=== PATIENT | male | born 1950 | race Two or more races ===

== ENCOUNTER 2019-07-23 08:15 | Inpatient (IN) | payer MEDICARE, BC ==
[~2019-07-23] VITALS: Ht 180.3 cm; Wt 101.3 kg
[2019-07-23] MEDS ORDERED: SODIUM CHLORIDE 0.9% 1,000 ML IV ONE (08:36)
[2019-07-23] MEDS ORDERED: ASPirin 81 mg TAB PO ONE (08:45)
[2019-07-23 08:53] LABS: Basophils # (auto) 0 10 ^3/uL (0-0.2); Basophils % (auto) 0.7 % (0.0-2.0); Eosinophils # (auto) 0.1 10 ^3/uL (0-0.8); Eosinophils % (auto) 1.3 % (0.0-7.0); Hematocrit 48.9 % (41.0-53.0); Hemoglobin 16.5 g/dL (13.5-17.5); Lymphocytes # (auto) 1.4 10 ^3/uL (0.4-5.4); Lymphocytes % (auto) 24.4 % (10.0-50.0); Mean Corpuscular Hemoglobin 30.4 pg (28.0-32.0); Mean Corpuscular Hgb Conc. 33.8 g/dL (32.0-36.0); Monocytes # (auto) 0.4 10 ^3/uL (0-1.3); Monocytes % (auto) 7.7 % (0.0-12.0); Neutrophils # (auto) 3.9 10 ^3/uL (1.6-8.6); Neutrophils % (auto) 65.9 % (37.0-80.0); Nucleated Red Blood Cells % 0.3 %; Platelet Count (auto) 192 10^3/uL (140-450); Red Blood Cells 5.43 10^6/uL (4.5-5.90); Red Cell Distribution Width 13.4 % (11.8-14.3); White Blood Cell 5.9 10^3/uL (4.4-10.8)
[2019-07-23 09:13] LABS: Chloride 109 mmol/L (98-107); Potassium 3.6 mmol/L (3.5-5.1); Sodium 139 mmol/L (136-145)
[2019-07-23 09:23] LABS: Alanine Aminotransferase 27 U/L (16-61); Albumin 4.4 g/dL (3.4-5.0); Alkaline Phosphatase 105 U/L (45-117); Anion Gap 4 (5-15); Aspartate Aminotransferase 20 U/L (15-37); BUN/Creatinine Ratio 22.8; Bilirubin, Total 1.3 mg/dL (0.2-1.0); Blood Urea Nitrogen 18 mg/dL (7-18); Calcium 8.6 mg/dL (8.5-10.1); Carbon Dioxide 26 mmol/L (21-32); GFR African American 125 mL/min; GFR Non-African American 103 mL/min; Glucose 103 mg/dL (74-106); Total Protein 8.4 g/dL (6.4-8.2)
[2019-07-23 09:40] LABS: Urine Bacteria NONE SEEN /hpf (None Seen); Urine Blood Negative /uL (Negative); Urine Mucus FEW (None Seen); Urine Specific Gravity 1.028 (1.001-1.035); Urine WBC 1 /hpf (0 - 3)
[2019-07-23] MEDS ORDERED: LISI10TA6 PO (10:08)
[2019-07-23] MEDS ORDERED: cloNIDine HCL 0.1 MG TAB PO ONE (10:30)
[2019-07-23] MEDS ORDERED: hydrALAZINE HCL 20 MG/ML VL IV PRN (11:00)
[2019-07-23] MEDS: amLODIPine BESYLATE 5 MG TAB PO SCH (11:00)
[2019-07-23] MEDS ORDERED: HYDROcodone-ACET 5/325MG TAB PO PRN (11:00)
[2019-07-23] MEDS ORDERED: ACETAMINOPHEN 500 MG TAB PO PRN (11:00)
[2019-07-23] MEDS ORDERED: MORPHINE SULF INJ 2 MG/ML SYRINGE 1ML IV PRN ×2 (11:00)
[2019-07-23] MEDS ORDERED: ONDANSETRON HCL 4 MG/2 ML VIAL IV PRN (11:00)
[2019-07-23] MEDS ORDERED: NITROGLYCERIN 0.4 MG SL TAB SL PRN (11:00)
[2019-07-23 12:25] LABS: CRP High Sensitivity 0.11 mg/dL (< 0.3)
[2019-07-23 15:23] VITALS: BP 146/87
[2019-07-23 17:00] VITALS: BP 147/87
[2019-07-23 22:00] VITALS: BP 143/96
[2019-07-23] MEDS: ATORVASTATIN 20 MG TAB PO SCH (22:12)
[2019-07-23] MEDS: METOPROLOL TARTRATE 25 MG TAB PO SCH (22:13)
[2019-07-24 05:00] VITALS: BP 141/69
[2019-07-24] MEDS ORDERED: ADENOSINE 85 MG in GIVE UN-DILUTED 0 ML IV STA (08:38)
[2019-07-24 09:00] VITALS: BP 150/91
[2019-07-24] MEDS ORDERED: LISINOPRIL 10 MG TAB PO SCH (10:00)
[2019-07-24] MEDS: ASPirin-EC 81 mg tab PO SCH (12:40)
[2019-07-24] MEDS: FAMOTIDINE 20 MG TAB PO SCH (12:40)
[2019-07-24 13:00] VITALS: BP 158/94
[2019-07-24] MEDS: amLODIPine BESYLATE 5 MG TAB PO SCH (14:49)
[2019-07-24] MEDS: METOPROLOL TARTRATE 25 MG TAB PO SCH ×2 (14:49→22:24)
[2019-07-24 16:49] VITALS: BP 155/95
[2019-07-24] MEDS ORDERED: HCTZ 25 MG TAB PO ONE (18:00)
[2019-07-24] MEDS ORDERED: LORazepam 2MG/ML-1ML VIAL IV PRN (19:30)
[2019-07-24 21:51] VITALS: BP 134/79
[2019-07-24] MEDS: ATORVASTATIN 20 MG TAB PO SCH (22:24)
[2019-07-25 05:34] VITALS: BP 132/84
[2019-07-25] MEDS: ASPirin-EC 81 mg tab PO SCH (08:54)
[2019-07-25] MEDS: FAMOTIDINE 20 MG TAB PO SCH (08:55)
[2019-07-25] MEDS: METOPROLOL TARTRATE 25 MG TAB PO SCH ×2 (08:56→22:17)
[2019-07-25] MEDS: LISINOPRIL 10 MG TAB PO SCH (08:57)
[2019-07-25 09:00] VITALS: BP 150/87
[2019-07-25] MEDS: HCTZ 25 MG TAB PO SCH (09:00)
[2019-07-25] MEDS: amLODIPine BESYLATE 5 MG TAB PO SCH (10:00)
[2019-07-25] MEDS ORDERED: GADOTERIDOL 279.3mg/mL 20ml Vial IV ONE (10:39)
[2019-07-25 13:00] VITALS: BP 152/81
[2019-07-25 16:32] LABS: INR 1.07 (0.9-1.15); Partial Thromboplastin Time 31.9 sec (23.64-32.05)
[2019-07-25 16:34] VITALS: BP 131/87
[2019-07-25 21:50] VITALS: BP 110/71
[2019-07-25] MEDS: ATORVASTATIN 20 MG TAB PO SCH (22:17)
[2019-07-26 04:58] VITALS: BP 126/74
[2019-07-26 06:46] LABS: Basophils # (auto) 0 10 ^3/uL (0-0.2); Basophils % (auto) 0.5 % (0.0-2.0); Eosinophils # (auto) 0.1 10 ^3/uL (0-0.8); Eosinophils % (auto) 1.4 % (0.0-7.0); Hematocrit 47.8 % (41.0-53.0); Hemoglobin 16.4 g/dL (13.5-17.5); Lymphocytes # (auto) 1.6 10 ^3/uL (0.4-5.4); Lymphocytes % (auto) 21.6 % (10.0-50.0); Mean Corpuscular Hemoglobin 30.5 pg (28.0-32.0); Mean Corpuscular Hgb Conc. 34.3 g/dL (32.0-36.0); Mean Corpuscular Volume 88.9 fL (80.0-100.0); Monocytes # (auto) 0.8 10 ^3/uL (0-1.3); Monocytes % (auto) 10.4 % (0.0-12.0); Neutrophils # (auto) 4.9 10 ^3/uL (1.6-8.6); Neutrophils % (auto) 66.1 % (37.0-80.0); Nucleated Red Blood Cells % 0.3 %; Platelet Count (auto) 218 10^3/uL (140-450); Red Blood Cells 5.38 10^6/uL (4.5-5.90); Red Cell Distribution Width 13.6 % (11.8-14.3); White Blood Cell 7.5 10^3/uL (4.4-10.8)
[2019-07-26 06:53] LABS: INR 1.06 (0.9-1.15); Partial Thromboplastin Time 31.8 sec (23.64-32.05)
[2019-07-26 07:02] LABS: Potassium 3.7 mmol/L (3.5-5.1)
[2019-07-26 07:11] LABS: Calcium 8.8 mg/dL (8.5-10.1)
[2019-07-26] MEDS ORDERED: IODIXANOL 320MG/ML 100ML BTL IV ONE (07:56)
[2019-07-26] MEDS: ASPirin-EC 81 mg tab PO SCH (08:13)
[2019-07-26 09:13] VITALS: BP 123/76
[2019-07-26] MEDS: LISINOPRIL 10 MG TAB PO SCH (10:00)
[2019-07-26] MEDS: METOPROLOL TARTRATE 25 MG TAB PO SCH ×2 (10:00→21:17)
[2019-07-26] MEDS: amLODIPine BESYLATE 5 MG TAB PO SCH (10:00)
[2019-07-26] MEDS: HCTZ 25 MG TAB PO SCH (10:00)
[2019-07-26] MEDS: FAMOTIDINE 20 MG TAB PO SCH (10:00)
[2019-07-26] MEDS ORDERED: LIDOCAINE 2%HCL (LOCAL ANESTH.) INJ 20ML MDV ONE (10:51)
[2019-07-26] MEDS ORDERED: IOHEXOL 350 MG/ML 100ML IJ ONE (10:51)
[2019-07-26] MEDS ORDERED: ANGIOMAX 250 MG VIAL IV ONE (10:54)
[2019-07-26] MEDS ORDERED: fentaNYL CITRATE 100 MCG/2 ML VL ONE (10:55)
[2019-07-26] MEDS ORDERED: SODIUM CHL 0.9% 0 ML ONE (10:55)
[2019-07-26] MEDS ORDERED: MIDAZOLAM HCL 1MG/1ML-2 ML VIAL ONE (10:55)
[2019-07-26] MEDS ORDERED: HEPARIN SODIUM (PORCINE) 5000 UNITS/ML 1ML VIAL ONE (10:56)
[2019-07-26] MEDS ORDERED: VERAPAMIL 2.5MG/ML INJ 2ML VIAL IV ONE (10:56)
[2019-07-26 16:35] VITALS: BP 141/74
[2019-07-26 21:00] VITALS: BP 118/77
[2019-07-26] MEDS: ATORVASTATIN 20 MG TAB PO SCH (21:17)
[2019-07-26] MEDS ORDERED: guaiFENesin-DM 100/10mg/5ml SYR PO PRN (21:30)
[2019-07-27 04:30] VITALS: BP 127/78
[2019-07-27 08:37] VITALS: BP 152/79
[2019-07-27 08:38] VITALS: BP 135/85
[2019-07-27] MEDS: ASPirin-EC 81 mg tab PO SCH (09:56)
[2019-07-27] MEDS: HCTZ 25 MG TAB PO SCH (09:57)
[2019-07-27] MEDS: METOPROLOL TARTRATE 25 MG TAB PO SCH (09:57)
[2019-07-27] MEDS: FAMOTIDINE 20 MG TAB PO SCH (09:58)
[2019-07-27] MEDS: amLODIPine BESYLATE 5 MG TAB PO SCH (09:58)
[2019-07-27] MEDS: LISINOPRIL 10 MG TAB PO SCH (09:58)
[2019-07-27 13:00] VITALS: BP 140/85
[2019-07-27] MEDS ORDERED: MET25T PO (15:56)
[2019-07-27] MEDS ORDERED: ATOR40TA52 PO (15:56)
[2019-07-27] MEDS ORDERED: LISI-646 PO (15:56)
[2019-07-27] MEDS ORDERED: HYDR12.55 PO (15:56)
[2019-07-27] MEDS ORDERED: ASP81EC PO (15:56)
[2019-07-27] MEDS ORDERED: FAM20T PO (15:57)
[2019-07-27 16:16] VITALS: BP 124/75
== END 2019-07-27 18:05 | disposition home or self-care (01) | DRG 65 ==
LOC: ER 08:15 → TELE 08:16 → TELE-WESTW 14:50
PROVIDERS: ADMIT Nurse Practitioner Acute Care; ATTEND Internal Medicine Nephrology
PROC: 4A023N7 Measurement of Cardiac Sampling and Pressure, Left Heart, Percutaneous Approach (ICD-10-PCS; principal; 2019-07-26)
PROC: B215YZZ Fluoroscopy of Left Heart using Other Contrast (ICD-10-PCS; 2019-07-26)
PROC: B211YZZ Fluoroscopy of Multiple Coronary Arteries using Other Contrast (ICD-10-PCS; 2019-07-26)
DX: I63.531 Cerebral infarction due to unspecified occlusion or stenosis of right posterior cerebral artery (principal); I24.9 Acute ischemic heart disease, unspecified; I50.22 Chronic systolic (congestive) heart failure; I25.10 Atherosclerotic heart disease of native coronary artery without angina pectoris; I11.0 Hypertensive heart disease with heart failure; E78.5 Hyperlipidemia, unspecified; F17.210 Nicotine dependence, cigarettes, uncomplicated; I08.1 Rheumatic disorders of both mitral and tricuspid valves; I67.2 Cerebral atherosclerosis; E86.0 Dehydration; E66.9 Obesity, unspecified; Z95.0 Presence of cardiac pacemaker; Z79.82 Long term (current) use of aspirin; Z79.899 Other long term (current) drug therapy; Z82.49 Family history of ischemic heart disease and other diseases of the circulatory system; Z68.31 Body mass index [BMI] 31.0-31.9, adult
CPT/HCPCS: 36415; 70450; 70553; 71045; 78452; 80048; 80053; 80061; 81001; 83735; 83880; 84484; 85025; 85610; 85730; 86141; 86850; 86900; 86901; 93005; 93017; 93306; 93886; 99152; G0378; J0153; J2250; Q9967